=== PATIENT | female | born 1995 | race African-American/Black ===

== ENCOUNTER 2019-10-21 11:16 | Emergency (ER) | payer MEDICAID ==
[~2019-10-21] VITALS: Ht 154.9 cm; Wt 92.1 kg
[2019-10-21 11:29] VITALS: BP 101/62
== END 2019-10-21 13:36 | disposition left against medical advice (07) ==
LOC: ER 11:16
DX: R05 Cough (principal); Z53.21 Procedure and treatment not carried out due to patient leaving prior to being seen by health care provider